=== PATIENT | female | born 1980 | race Caucasian/White ===

== ENCOUNTER 2017-04-30 15:07 | Emergency (ER) | payer BC, OTHER ==
[2017-04-30 15:23] VITALS: BP 110/75; PULSE 95; TEMP 99.8; BMI 26.1
--- NOTE | 2017-04-30 16:51 | PDOC ---
History of Present Illness - General Chief Complaint: Cold Symptoms Stated Complaint: FLU SYMPTOMS Time Seen by Provider: 04/30/17 16:30 History Source: Patient Exam Limitations: No Limitations - History of Present Illness Initial Comments: 04/30/17 16:49 36 yr female with body aches sore throat nasal congestion started tuesday suddenly with fever 103. pt on day 4 of tamilfu continues with sore throat. no vomiting no fever today. Severity: reports: mild, moderate Past History - Past Medical History Allergies/Adverse Reactions: Allergies Allergy/AdvReac Type Severity Reaction Status Date / Time No Known Allergies Allergy Verified 04/30/17 15:15 Home Medications: Ambulatory Orders Oseltamivir Phosphate [Tamiflu] 75 mg PO BID 04/30/17 COPD: No - Suicide/Smoking/Psychosocial Hx Smoking History: Never smoked Information on smoking cessation initiated: No Hx Alcohol Use: No Drug/Substance Use Hx: No Substance Use Type: None *Physical Exam - Vital Signs Last Vital Signs Temp Pulse Resp BP Pulse Ox 99.8 F H 95 H 18 110/75 100 04/30/17 15:15 04/30/17 15:15 04/30/17 15:15 04/30/17 15:15 04/30/17 15:15 - Physical Exam General Appearance: Yes: Nourished, Appropriately Dressed HEENT: positive: EOMI, JESS, TMs Normal, Pharynx Normal, Pharyngeal Erythema, Tonsillar Erythema. negative: Tonsillar Exudate Neck: positive: Supple. negative: Lymphadenopathy (R), Lymphadenopathy (L) Respiratory/Chest: positive: Lungs Clear, Normal Breath Sounds. negative: Chest Tender Cardiovascular: positive: Regular Rhythm, Regular Rate Musculoskeletal: positive: Normal Inspection Extremity: positive: Normal Capillary Refill, Normal Inspection, Normal Range of Motion Integumentary: positive: Normal Color, Dry, Warm Neurologic: positive: Fully Oriented, Alert, Normal Mood/Affect, Normal Response , Motor Strength 5/5 Medical Decision Making - Medical Decision Making 04/30/17 16:50 cc: body aches sore throat nasal congestion started 3 days ago on tamiflu day 3 , feels somewhat better but still has sore throat. non toxic took tylenol at 6am and tamiflu this am will check for strep 04/30/17 16:51 *DC/Admit/Observation/Transfer Diagnosis at time of Disposition: Flu-like symptoms Pharyngitis Qualifiers: Pharyngitis/tonsillitis etiology: unspecified etiology Qualified Code(s): J02.9 - Acute pharyngitis, unspecified - Discharge Dispostion Disposition: HOME Condition at time of disposition: Good - Referrals - Patient Instructions Additional Instructions: continue taking tamiflu drink pleanty of water to stay well hydrated increase vitamin C and Zinc in your diet follow with your doctor for any worsening symptoms you should get pleanty of rest - Post Discharge Activity Forms/Work/School Notes: Back to Work
== END 2017-04-30 17:17 | disposition home or self-care (01) ==
LOC: JER 15:07 → JERFT 15:07
DX: J11.1 Influenza due to unidentified influenza virus with other respiratory manifestations (principal); J02.9 Acute pharyngitis, unspecified
CPT/HCPCS: 87070; 87430; 99281-25